=== PATIENT | female | born 1985 | race Caucasian/White ===

== ENCOUNTER 2018-09-23 12:12 | Inpatient (IN) ==
[2018-09-23] MEDS ORDERED: Mag Hydrox/Al Hydrox/Simeth 30 ML UDC PO PRN (12:21)
[2018-09-23] MEDS ORDERED: *HR* LORazepam 2 MG/ML VIAL IM PRN (12:21)
[2018-09-23] MEDS ORDERED: MOM Conc 10 ML UD.LIQ PO PRN (12:21)
[2018-09-23] MEDS ORDERED: Haloperidol Lactate 5 MG/ML VIAL IM PRN (12:21)
[2018-09-23] MEDS ORDERED: *HR* LORazepam 1 MG TABLET PO PRN (12:21)
--- NOTE | 2018-09-23 15:00 | Psychiatry History & Physical ---
Date of Encounter: 09/24/18 Time of Encounter: 14:39 History of Present Illness Patient Stated Chief Complaint: "I have been struggling with a severe epsidoe of depression" Medicare Admission Attestation: For traditional Medicare patients the provided hospital inpatient services are reasonable and necessary and in the case of services not specified as inpatient-only under 42 CFR 419.22 (n), that they are appropriately provided as inpatient services in accordance 42 CFR 412.3. For Critical Access Hospital the patient may reasonably be expected to be discharged or transferred to a hospital within 96 hours after admission to the Critical Access Hospital. Admitted From: Intrahospital Transfer Plans for Post Hospital Care: Home History of Present Illness: Ms. Gupta is a 33 year old female with a self-reported past psychiatric history of trichotillomania, Alcohol Use Disorder, OCD, anxiety, ADHD, depression, anxiety, Dissociative Disorder, and Borderline Personality Disorder who was transferred from [address] [place] [address] after an intentional overdose. Per my consult note today: "Ms. Gupta is a 33 year old female with past psychiatric history of bipolar disorder who was admitted on 10/02/2018 and his consulted to psychiatry today for an intentional overdose. Patient arrived by EMS after the intentional overdose, with report stating that she took about 40 pills of clonazepam 0.5 mg and a handful of Benadryl. She was also positive for alcohol with a blood alcohol level of 164. When she presented, she was drowsy but responsive to pain. However, there was little history that could be taken due to her drowsiness. She did admit that she had been depressed for several years. Last night, reports state that she is agitated and wanted to leave AMA. She also wanted to change her CODE STATUS to DNR, which legal services said she could not do due to being pink slipped. When seeing the patient today, her eyes are closed but she was easily arousable to verbal stimuli. She stated in a high voice that she was "scared." She explained that her two dogs were at home and that they have not eaten. When asked if she had anyone she could call, she denied that she has any wanted to take care of her animals. When asked if we could possibly get services for her dogs, she reports that they are mean and would get taken away. When told that she would need to be transferred to the inpatient psychiatric unit due to her intentional overdose, she started crying. She appeared severely upset. When asked how her depression was today, she said "how would you feel the only 2 things that mattered in the world were going to ." She denied issues with sleep, stating that she thought she would be able to go home today and was excited to see her dogs. She denied current SI, HI, and AVH. When asked what happened yesterday to cough. It is, she states that she was afraid to say anything else. When told that it was not going to mattered if she said more or less, she states "now I am not going to say anything else." When asked further questions, she repeated that sentence. When asked if I could still look for services to assist with her dogs, she stated [id number], "You can just let them ."" She reports that she does not know if she wanted to harm herself last night as much as she wanted the pain to go away. She states that her "spirit is tired of dealing with this every fucking day." She is regretful for her recent attempt, stating that she "could have really hurt herself," which she didn't want to do. She reports that she is "ashamed of herself." She states that the breaking point came when her boyfriend of a few weeks who she was going to move in with broke up with her yesterday. She reports that she did not "process it right." She rep orts she called him crying, at which point he called for a wellness check. Police found her after the overdose. She reports that she remembered bits and pieces of the night. Patient reports that she has been depressed severely for about 2 years. She reports decreased appetite and sleep (being awake 4 days and asleep for 4 days on and off). She reports nightmares of looking for her father. She reports that her depression is currently the worse she has ever had. She explains that she has about 5 good days a month. She explains that she is an "endless pit of sadness." She states that she has some "resilience" and thinks, "this can't last forever." State states that she "keeps trying" with this hope, denying hopelessness. She admits to decreased energy and concentration. She admits to feelings of worthlessness and unwarranted guilt. She denies current SI, HI, AH, and VH, and a history of AH and VH. She reports issues with alcohol since her early 20s. She denies withdrawal symp toms from alcohol currently. She denies a history of suicide attempts. She denies significant thoughts of suicide throughout the day but reports past thoughts. She denies access to firearms. She reports protective factors of her mother, her dogs, the idea of getting , and wanting to watch [employer]. She reports a history of punching the wood panels when she is angry. She reports current medications of Duloxetine 60mg PO Daily (only been on for 1.5 months, thinks it does not help) and Clonazepam 0.5mg PO BID PRN and receives them from her Behavioral Health Provider in [place] in [place]. She denies a significant history of excessive energy resulting in prolonged sleep characteristic of Bipolar Disorder. Past Med Surg Social Fam HX - Past Medical History Source: patient Medical history: GERD, other (Irritable Bowel Syndrome) - Past Psychiatric History Psychiatric history: Reports: anxiety, ADHD, depression, previous psychiatric hospitalization, other (OCD, Borderline Personality Disorder, Dissociative Disorder, Alcohol Use Disorder). Denies: prior suicide attempt Past psychiatric history details: First Contact: 2004 for depression, anxiety, and tricotillomania Past Diagnosis: Trichotillomania, depression, anxiety, OCD, ADHD, Dissociative Disorder, Borderline Personality Disorder Current Provider: Louisa Gomez NP at [facility] for psychiatric care Past Psychiatric Hospitalizations: 1 time on 1A in 2009 Suicide History: Reports past SI that is intermittent in nature. Denies a history of attempts. Reports punching when angry Past Medications: Risperidone Prozac Lexapro Celexa Zoloft Luvox Clonazepam Duloxetine Ambien Xanax Effexor Adderall Vyvanse She reports temporary relief from these medications but nothing long-lasting She states that Adderall assisted with her concentration but explains that her anxiety increased on this medication Family psychiatric history: Yes Family Psychiatric History Details: Paternal great grandmother - in a mental institution. paternal grandmother - bipolar disorder. maternal aunt - bipolar disorder. cousin - tricotillomania. maternal grandfather - alcohol issues. father - alcohol issues. 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 States that she was and . Currently unemployed. Has 2 dogs. Denies history. Had a good relationship with father, who is now . Medications & Allergies RX: Pantoprazole Sodium 40 mg PO DAILY 04/16/17 [History] RX: Duloxetine HCl [Cymbalta] 60 mg PO DAILY 09/23/18 [History] RX: Fluticasone Propionate Nasal [Flonase] 2 spray NS DAILY 09/23/18 [History] clonazePAM [Clonazepam] 0.5 mg PO BID PRN 09/23/18 [History] Allergy/AdvReac Type Severity Reaction Status Date / Time Sulfa (Sulfonamide Allergy See Verified 08/09/18 18:40 Antibiotics) Comments Review of Systems Constitutional: Reports: night sweats (reports sweating "a lot" starting 3 months ago; chest Xray upon presentation negative). Denies: fever, chills, weakness, weight change Eyes: Denies: eye pain, eye discharge, vision change Ears, Nose, Throat: Reports: congestion (allergies). Denies: ear pain, throat p ain, dental pain, hearing loss, epistaxis, dysphagia Cardiovascular: Denies: chest pain, palpitations, dyspnea on exertion, orthopnea, edema, syncope Respiratory: Reports: cough, sputum production (clear in color). Denies: dyspnea, wheezes, hemoptysis, stridor Gastrointestinal: Reports: diarrhea (due to IBS). Denies: abdominal pain, nausea, vomiting, constipation, hematemisis, melena, hematochezia Genitourinary female: Reports: frequency (due to fluids given). Denies: urgency, dysuria, hematuria, discharge, abnormal menses, dyspareunia, genital Lesions Musculoskeletal: Reports: other (mild shoulder pain). Denies: back pain, joint swelling, joint pain, myalgia Integumentary: Denies: rash, lesions, pruritus, breast mass, nipple discharge Neurological: Reports: headache (mild due to hunger). Denies: weakness, nu mbness, paresthesias, confusion, memory loss, abnormal gait, vertigo Psychiatric: Reports: depression, anxiety, abnormal sleep pattern, change in appetite, anhedonia, difficulty concentrating, irritability, mood swings. Denies: suicidal ideation, homicidal ideation, auditory hallucinations, visual hallucinations, confusion, memory loss, hopelessness Endocrine: Denies: fatigue, heat or cold intolerance, polydipsia, polyuria Hematologic/Lymphatic: Denies: easy bleeding, easy bruising, lymphadenopathy Allergic/Immunologic: Denies: facial swelling, urticaria, itchy eyes Exam - HEENT Head exam IM: Present: atraumatic, normocephalic Eye exam IM: Present: EOMI, normal appearance, PERRL ENT exam IM: Present: normal exam - Neurological Neurological exam: Present: CN II-XII intact - Respiratory Respiratory exam IM: Present: CTAB (grossly; respirations rhythmic) - GI/Abdominal GI/Abdominal exam IM: Present: no peritoneal signs (grossly) - Extremities Extremities exam IM: Present: normal inspection - Skin Skin exam IM: Present: dry - Constitutional Vitals: Temp Pulse Resp BP Pulse Ox 98.3 F 82 16 138/101 96 09/23/18 12:46 09/23/18 12:46 09/23/18 12:46 09/23/18 12:46 09/23/18 12:46 General appearance: age & developmentally appropriate, well-groomed, well- nourished, obese Additional observations: tattoos covering arms bilaterally hair unkempt - Musculoskeletal Gait: normal Station: relaxed Strength & Tone: normal for patient (grossly) - Psychiatric Patient Orientation: Yes Person, Yes Time, Yes Place, Yes Circumstance Level of alertness: Alert, Follows commands Behavior: calm, cooperative, tearful (appropriately ) Psychomotor activity: Normal Eye Contact: Maintains Eye Contact Mood Description: Euthymic/stable Patient description of mood: "ok" Affect description: congruent with mood, full range, tearful Speech Volume: Normal Speech pattern: normal rate, normal rhythm, normal tone (voice not as high as earlier today), fluent, spontaneous, appropriate, clear, coherent Language & Vocabulary: consistent with education Thought Process: Logical, Linear, Goal Oriented Thought Content: No Suicidal ideation, No Homicidal ideation, No Overt delusions Perceptual Disturbances: No Reacting to internal stimuli, No Auditory hallucinations, No Visual hallucinations Attention Span Ability: Capable of Focused Attention Memory Description: Grossly Intact Patient Reliability: Reliable Historian Fund of knowledge: Yes average, Yes aware of current events Intelligence Estimate: Average Judgment: Limited Insight: Partial Results - Drug Levels and Toxicology Drug Levels and Toxicology: None noted this admission - Labs Labs: None noted this admission - Impressions None noted this admission Assessment and Plan (1) Major depressive disorder, recurrent severe without psychotic features Current visit: Yes Status: Acute Plan: Admit inpatient for safety and stabilization, Close observation, Suicide Precautions per unit protocol, Encourage participation in unit milieu, Group Therapy, Monitor sleep, Monitor appetite Additional Plan: -Start aripiprazole 5 mg by mouth every morning for mood. Risks, benefits, side effects, and alternatives to treatment were discussed with the patient -Discontinue clonazepam due to recent overdose -Continue Doxaphene 60 mg by mouth daily for mood -Continue when necessary medications for agitation -Continue hydroxyzine 25 mg by mouth 3 times a day when necessary for anxiety -Continue trazodone 50 mg by mouth daily at bedtime when necessary for sleep -AIMS conducted (0) -Patient reports wanting STI, HIV, RPR, and hepatitis panel testing due to having intercourse without protection. Informed consent received for HIV testing -Patient reports that she does have care with a psychiatric provider in [place]. However she would like to start counseling. She states that she likes start counseling at [facility] if possible. -Patient reports she has stable housing -Anticipated discharge once more psychiatrically stable Risks, benefits, side effects, alternatives discussed w/pt: Yes Patient agreeable to treatment: Yes Plans for Post Hospital Care: Home Estimated Length of Stay (Days): 3 - Attending Attestation I examined this patient and my medical decision-making was reviewed with the Resident Physician. I agree with the documented findings, disposition and treatment plan as described.
[2018-09-23] MEDS: Acetaminophen 325 MG TABLET PO PRN (18:57)
[2018-09-23 20:32] LABS: Hepatitis B Surface Antigen Nonreactive (Nonreactive)
[2018-09-23 21:03] LABS: Hepatitis B Core IgM Nonreactive (Nonreactive)
[2018-09-23 21:06] LABS: Hepatitis A Antibody IgM Nonreactive (Nonreactive)
[2018-09-23 21:09] LABS: Hepatitis C Virus Antibody Nonreactive (Nonreactive)
[2018-09-24] MEDS: Acetaminophen 325 MG TABLET PO PRN (00:54)
[2018-09-24] MEDS: hydrOXYzine pamoate 25 MG CAPSULE PO PRN ×2 (00:54→22:17)
[2018-09-24] MEDS: traZODone 50 MG TABLET PO PRN ×2 (00:54→22:17)
[2018-09-24] MEDS: ARIPiprazole 5 MG TABLET PO SCH (08:42)
[2018-09-24] MEDS: Fluticasone Propionate Nasal 50 MCG/SPRAY BOTTLE NS SCH (08:43)
--- NOTE | 2018-09-24 09:31 | Psychiatry Progress Note ---
Date of Encounter: 09/24/18 Time of Encounter: 09:22 Subjective Interval history: Client irritable today. Poor eye contact. Minimal responses to questions. Was rude to staff last night. Did not have Prilosec ordered for evening time (morning only) and she told staff she wouldn't sleep at all and that they would have to deal with her vomiting all night. Client then went to room and slept all night with no emesis or complaints of nausea/acid reflux. Today client states she is "tired" and that if staff give her any more meds she "won't be able to pronounce my own name." Currently only taking Cymbalta and Prilosec. Abilify added as an augmenting agent but client just took this for the first time a few minutes ago. Discussed a more stimulating antidepressant, like Wellbutrin, to assist with mood and energy levels but client refusing to consider any more meds at this time. After all the drama with her dogs yesterday client did find a friend to take them. Today client states she told her friend to find them a new home since she is being evicted. Not able to make payments on home because "I can't hold a job." Unclear if this is true as client clearly has a penchant for drama and mistruths. Asked client if she would like assistance with housing this admission and client reported "I plan to sleep in my car." Discussed therapy and client stated she cannot get to her appointments because her car is "unreliable." Discussed switching to a provider closer to home and perhaps transportation could be arranged. Specifically discussed DBT and partial hospitalization programs but client reported she could "do deep breathing exercises at home for free" and "I can talk to myself at home for free." States she is chronically depressed and that she has felt this way since her early twenties. Denies any medications have ever benefitted her. Client terminated interview asking "Are we done?" Review of Systems Constitutional: Denies: fever, chills, weakness, weight change Eyes: Denies: eye pain, vision change Ears, Nose, Throat: Denies: ear pain, throat pain, dental pain, hearing loss, congestion Cardiovascular: Denies: chest pain, palpitations, dyspnea on exertion Respiratory: Denies: cough, dyspnea, wheezes Gastrointestinal: Denies: abdominal pain, nausea, vomiting, diarrhea, constipation Musculoskeletal: Denies: joint swelling, joint pain Neurological: Denies: headache, weakness, numbness, memory loss Psychiatric: Reports: depression, anxiety, abnormal sleep pattern, change in appetite, anhedonia, difficulty concentrating, irritability, mood swings. Denies: suicidal ideation, homicidal ideation, auditory hallucinations, visual hallucinations, confusion, memory loss, hopelessness Results - Vital Signs Vital Signs: Temp Pulse Resp BP Pulse Ox 98.1 F 76 16 114/83 96 09/24/18 08:56 09/24/18 08:56 09/24/18 08:56 09/24/18 08:56 09/24/18 08:56 - Labs Labs: Laboratory Results - last 24 hr 09/23/18 09/23/18 09/23/18 15:45 15:51 15:54 T.pallidum Ab Interpret Negative Hepatitis A IgM Ab Nonreactive Hep Bs Antigen Nonreactive Hep B Core IgM Ab Nonreactive Hepatitis C Ab Screen Nonreactive HIV Ag/Ab Combo Qual Nonreactive Assessment and Plan (1) Major depressive disorder, recurrent severe without psychotic features Current visit: Yes Status: Acute Plan: Continue hospitalization, Close observation, Suicide Precautions per unit protocol, Encourage participation in unit milieu, Group Therapy, Monitor sleep, Monitor appetite Risks, benefits, side effects, alternatives discussed w/pt: Yes Patient agreeable to treatment: Yes (2) Borderline personality disorder Current visit: Yes Status: Acute Plan: Continue hospitalization, Close observation, Suicide Precautions per unit protocol, Encourage participation in unit milieu, Group Therapy, Monitor sleep, Monitor appetite Risks, benefits, side effects, alternatives discussed w/pt: Yes Patient agreeable to treatment: Yes Consult Discharge Plan - Plan Referrals: NONE,PCP [Primary Care Provider] - Psychiatry Exam - Constitutional Vitals: Temp Pulse Resp BP Pulse Ox 98.1 F 76 16 114/83 96 09/24/18 08:56 09/24/18 08:56 09/24/18 08:56 09/24/18 08:56 09/24/18 08:56 General appearance: obese - Musculoskeletal Gait: normal Station: relaxed Strength & Tone: normal for patient - Psychiatric Patient Orientation: Yes Person, Yes Time, Yes Place Level of alertness: Alert Behavior: guarded Psychomotor activity: Normal Eye Contact: Minimal Contact Mood Description: Depressed, Irritable Affect description: congruent with mood Speech Volume: Normal Speech pattern: normal rate, normal rhythm, normal tone, fluent, spontaneous Language & Vocabulary: consistent with education Thought Process: Linear Thought Content: Yes Suicidal ideation, No Homicidal ideation, No Overt delusions Perceptual Disturbances: No Auditory hallucinations, No Visual hallucinations Attention Span Ability: Capable of Focused Attention Memory Description: Grossly Intact Patient Reliability: Questionable Historian Fund of knowledge: Yes abstraction ability, Yes aware of current events Intelligence Estimate: Average Judgment: Limited Insight: Minimal
[2018-09-24] MEDS ORDERED: Nicotine 21 MG PATCH.TD24 TD SCH (17:45)
[2018-09-25] MEDS ORDERED: Nicotine 2 MG GUM BC PRN (08:08)
[2018-09-25] MEDS: ARIPiprazole 5 MG TABLET PO SCH (08:45)
[2018-09-25] MEDS: Fluticasone Propionate Nasal 50 MCG/SPRAY BOTTLE NS SCH (08:48)
[2018-09-25 09:08] VITALS: BP 128/85
--- NOTE | 2018-09-25 11:41 | Discharge Summary ---
Date of Encounter: 09/25/18 Time of Encounter: 09:10 Diagnosis - Discharge Diagnosis (1) Major depressive disorder, recurrent severe without psychotic features Priority: Primary Status: Acute Medications - Discharge Medications Prescriptions: ARIPiprazole [Abilify] 5 mg PO QAM 14 Days #14 tablet hydrOXYzine pamoate [HydrOXYzine Pamoate] 25 mg PO TID PRN 14 Days #42 capsule PRN Reason: Anxiety Omeprazole [PriLOSEC] 40 mg PO DAILY 14 Days #14 capsule. Duloxetine HCl [Cymbalta] 60 mg PO DAILY 09/23/18 [History] Fluticasone Propionate Nasal [Flonase] 2 spray NS DAILY 09/23/18 [History] ARIPiprazole [Abilify] 5 mg PO QAM 14 Days #14 tablet 09/25/18 [Rx] Omeprazole [PriLOSEC] 40 mg PO DAILY 14 Days #14 capsule. 09/25/18 [Rx] hydrOXYzine pamoate [HydrOXYzine Pamoate] 25 mg PO TID PRN 14 Days #42 capsule 09/25/18 [Rx] Allergy/AdvReac Type Severity Reaction Status Date / Time Sulfa (Sulfonamide Allergy See Verified 08/09/18 18:40 Antibiotics) Comments Results Procedures and tests throughout hospitalization: Completed Lab Orders Category Date Time Status HIV-1&2 Antibody & p24 Ag Routine Lab 09/23/18 15:45 Completed RPR [Treponema Pallidum Ab] Routine Lab 09/23/18 15:54 Completed Viral hepatitis panel [Hepatitis Prof.(Routine A,B,C)] Lab 09/23/18 15:51 Completed Routine - Impressions None noted Provider Date of admission: 09/23/18 12:12 Primary care physician: PCP NONE Discharging clinician: Renu Olivo Psychiatry Exam - Constitutional Vitals: Temp Pulse Resp BP Pulse Ox 98.5 F 86 16 128/85 96 09/25/18 09:00 09/25/18 09:00 09/25/18 09:00 09/25/18 09:00 09/25/18 09:00 General appearance: age & developmentally appropriate, well-groomed, well- nourished, obese - Musculoskeletal Gait: normal Station: relaxed Strength & Tone: normal for patient (Grossly) - Psychiatric Patient Orientation: Yes Person, Yes Time, Yes Place, Yes Circumstance Level of alertness: Alert, Follows commands Behavior: calm, cooperative Psychomotor activity: Normal Eye Contact: Maintains Eye Contact Mood Description: Euthymic/stable Patient description of mood: "Fine" Affect description: congruent with mood, full range Speech Volume: Normal Speech pattern: normal rate, normal rhythm, normal tone, fluent, spontaneous Language & Vocabulary: consistent with education Thought Process: Logical, Linear, Goal Oriented Thought Content: No Suicidal ideation, No Homicidal ideation, No Overt delusions Perceptual Disturbances: No Reacting to internal stimuli, No Auditory hallucinations, No Visual hallucinations Attention Span Ability: Capable of Focused Attention Memory Description: Grossly Intact Patient Reliability: Reliable Historian Fund of knowledge: Yes abstraction ability, Yes aware of current events Intelligence Estimate: Average Judgment: Fair Insight: Partial Hospital Course Hospital course: Per my history and physical from 09/23/2018: "Ms. Gupta is a 33 year old female with a self-reported past psychiatric history of trichotillomania, Alcohol Use Disorder, OCD, anxiety, ADHD, depression, anxiety, Dissociative Disorder, and Borderline Personality Disorder who was transferred from medical unit after an intentional overdose. Per my consult note today: "Ms. Gupta is a 33 year old female with past psychiatric history of bipolar disorder who was admitted on 10/02/2018 and his consulted to psychiatry today for an intentional overdose. Patient arrived by EMS after the intentional overdose, with report stating that she took about 40 pills of clonazepam 0.5 mg and a handful of Benadryl. She was also positive for alcohol with a blood alcohol level of 164. When she presented, she was drowsy but responsive to pain. However, there was little history that could be taken due to her drowsiness. She did admit that she had been depressed for several years. Last night, reports state that she is agitated and wanted to leave AMA. She also wanted to change her CODE STATUS to DNR, which legal services said she could not do due to being pink slipped. When seeing the patient today, her eyes are closed but she was easily arousable to verbal stimuli. She stated in a high voice that she was "scared." She explained that her two dogs were at home and that they have not eaten. When asked if she had anyone she could call, she denied that she has any wanted to take care of her animals. When asked if we could possibly get services for her dogs, she reports that they are mean and would get taken away. When told that she would need to be transferred to the inpatient psychiatric unit due to her intentional overdose, she started crying. She appeared severely upset. When asked how her depression was today, she said "how would you feel the only 2 things that mattered in the world were going to ." She denied issues with sleep, stating that she thought she would be able to go home today and was excited to see her dogs. She denied current SI, HI, and AVH. When asked what happened yesterday to cough. It is, she states that she was afraid to say anything else. When told that it was not going to mattered if she said more or less, she states "now I am not going to say anything else." When asked further questions, she repeated that sentence. When asked if I could still look for services to assist with her dogs, she stated [id number], "You can just let them ."" She reports that she does not know if she wanted to harm herself last night as much as she wanted the pain to go away. She states that her "spirit is tired of dealing with this every fucking day." She is regretful for her recent attempt, stating that she "could have really hurt herself," which she didn't want to do. She reports that she is "ashamed of herself." She states that the breaking point came when her boyfriend of a few weeks who she was going to move in with broke up with her yesterday. She reports that she did not "process it right." She reports she called him crying, at which point he called for a wellness check. Police found her after the overdose. She reports that she remembered bits and pieces of the night. Patient reports that she has been depressed severely for about 2 years. She reports decreased appetite and sleep (being awake 4 days and asleep for 4 days on and off). She reports nightmares of looking for her father. She reports that her depression is currently the worse she has ever had. She explains that she has about 5 good days a month. She explains that she is an "endless pit of sadness." She states that she has some "resilience" and thinks, "this can't last forever." State states that she "keeps trying" with this hope, denying hopelessness. She admits to decreased energy and concentration. She admits to feelings of worthlessness and unwarranted guilt. She denies current SI, HI, AH, and VH, and a history of AH and VH. She reports issues with alcohol since her early 20s. She denies withdrawal symptoms from alcohol currently. She denies a history of suicide attempts. She denies significant thoughts of suicide throughout the day but reports past thoughts. She denies access to firearms. She reports protective factors of her mother, her dogs, the idea of getting , and wanting to watch [employer]. She reports a history of punching the wood panels when she is angry. She reports current medications of Duloxetine 60mg PO Daily (only been on for 1.5 months, thinks it does not help) and Clonazepam 0.5mg PO BID PRN and receives them from her Behavioral Health Provider in [place] in [place]. She denies a significant history of excessive energy resulting in prolonged sleep characteristic of Bipolar Disorder." Patient was admitted to the unit and given a supportive and therapeutic enviro nment. She often attend groups and visible coarse staff. She had intermittent agitation due to somatic complaints. However overall, she was cooperative with treatment. She was started on aripiprazole 5 mg by mouth every morning, which she reported drowsiness with both accepting of the side effect. She was discontinued off clonazepam due to the recent overdose. She was also restarted on her other medications. Patient's pantoprazole was changed to omeprazole, which she reported improvement of her acid reflux with. She was also started on hydroxyzine for anxiety, which she preferred. Patient was discharged to a cousin's house, who she has a good relationship with. Patient also was set up with counseling services at [facility]. She currently follows up with a provider in [place] at [place]. At the time discharge, she denied suicidal and homicidal ideations as well as hallucinations. She reported improvement in her mood. Patient was educated of her diagnosis and the risk-benefit side effects of this alternative treatment options and was monitored for responsiveness and side effects. Mood anxiety sleep and appetite interest improved as did future orie ntation. Self-harm thoughts subsided, thinking cleared, and mood stabilized. Patient was able to attend both individual and group therapy sessions as well as meeting with the psychiatrist daily and urged to discuss any medication or treatment issues or other concerns. The patient was educated primarily by verbal means about their diagnosis and manifestations in their life. The option for treatment including group and individual therapy programming was offered to the patient in the use of medications with all their potential risks, benefits, and side effects were discussed with the patient at length. The patient was given the opportunity to ask questions and was noted to participate in the treatment in the planning process. The patient felt ready and eager to be discharged from the inpatient psychiatric unit to continue on with treatment as an outpatient. The patient agreed that is they were safe for this disposition. The patient was considered to be able to participate in informed consent and decision making with respect to medical, legal, and financial issues of the time of discharge. At the time of discharge the patient adamantly denied any concerns for lethality including suicidal or homicidal thoughts or plans and was future oriented toward ongoing mental health care, medical follow-up and sobriety. Time spent discussing smoking cessation with patient: 3 to 10 minutes Does patient wish to continue nicotine replacement upon disc: No - Time Spent with Patient Total time spent providing and/or coordinating discharge services: Specific discharge activities: Interval history reviewed. Available labs reviewed . Psychotherapy provided. Patient had an opportunity to ask questions and address concerns. Patient was in agreement with the treatment plan. The risks benefits and side effects of medications were discussed with the patient, including alternatives and treatment. The patient was educated on the abstaining from any alcohol or illicit substances, following up with all scheduled appointments, and taking all medications as prescribed. The patient was educated on 90 meetings in 90 days and to find a sponsor. Assessment and Plan - Patient/Caregiver Discharge Instructions Activity: resume usual activities as tolerated Diet: regular diet Additional Instructions: Continue current medications. Follow up with outpatient mental health. Joseph quintana continued therapy in a group or individual setting. The patient was discharged to home - Follow up Plan Follow up with: [facility] [Outside] - 10/20/18 2:00 pm (Appointment at the [facility] with Fifi Souza on October 20, at 2:00pm. Will schedule appointment with Psychiatrist at that time. ) [facility] [Outside] - 10/13/18 8:15 am (You have an appointment scheduled for Saturday, October 13, 2018 at 8:15 AM with Louisa Skelton CNP for medication management. Please contact the office at the above number as soon as possible if you need to reschedule this appointment. ) Functional capacity at discharge: independent ambulation Overall status at discharge: Stable Disposition: Home, Self-Care Quality - Multiple Antipsychotics Patient discharged on 2 or more antipsychotic medications: No - Attending Attestation I examined this patient and my medical decision-making was reviewed with the Resident Physician. I agree with the documented findings, disposition and treatment plan as described except to the extent set forth below. Client far more pleasant today. Apologetic for her behavior yesterday. Reports she is ashamed of what she did and how she has acted. Denies any further thoughts of suicide and states she really can't point to what motivated her to take the overdose. Has multiple supports. Initially denied having anyone but able to list multiple people today. A friend has and is caring for her dogs. Client plans to live with her cousin at the time of discharge for a few days. States her cousin is a "helicopter mom" and "will probably do more checks on me than you guys do." Linked with services but admits her car is unreliable and wants to see providers closer to her home. Set up with future counseling and medication management appointments through [facility] and client grateful for this. Although she was dismissive of counseling yesterday she stated today it really does help her and she is excited to get back in to see someone consistently. Reports the Abilify is helping her mood. States she woke up today not feeling anxious for the first time in a long time. Irritable yesterday but pleasant and interacting with staff and peers today. Attending groups. Bright, reactive, and future oriented. Denies SI, intent, or plan today and wants to go home to see her family and her dogs. Able to have her rent due date extended so no longer facing eviction. Total time spent with client greater than 30 minutes. Procedures - Procedures Procedures: Medication Management, Crisis Stabilization, Supportive Therapy, Group Therapy, Psychoeducational Therapy
== END 2018-09-25 12:45 | disposition home or self-care (01) | DRG 751 ==
LOC: 1ANU 12:12
PROVIDERS: ADMIT Psychiatry & Neurology Psychiatry; ATTEND Psychiatry & Neurology Psychiatry